=== PATIENT | female | born 1955 | race Caucasian/White ===

== ENCOUNTER 2016-05-17 16:11 | Emergency (ER) | payer BC ==
[~2016-05-17] VITALS: Ht 170.2 cm; Wt 60.0 kg
[2016-05-17 16:21] VITALS: BP 123/64; PULSE 83; RESP 15; TEMP 98.2; O2SAT 98
[2016-05-17] MEDS ORDERED: SODIUM CHLOR 0.9% 1000 ML INJ 1,000 ML IV SCH (18:38)
--- NOTE | 2016-05-17 18:41 | PD ---
HPI Chief Complaint: GI Complaint Time Seen by Provider: 18:33 Travel History International Travel<30 days: No Contact w/Intl Traveler<30days: No Traveled to known affect area: No History of Present Illness HPI This is a 61-year-old female who presents for evaluation of nausea and vomiting. Symptoms started this morning at 4 AM. She reports several episodes of emesis today whenever she attempts to drink any water. She does note that the last time she threw up at 4 PM it was blood-tinged. She denies any abdominal pain, fevers, dysuria, chest pain or shortness of breath, diarrhea or constipation. She believes that she may have food poisoning because her has been feeling nauseous today as well. They both ate turkey sandwich at [employer] last night. She has no other complaints at this time. [facility] Social History Alcohol Use: Yes Tobacco Use: No Allergies-Medications (Allergen,Severity, Reaction): Coded Allergies: Penicillin (Verified Allergy, Unknown, 05/17/16) Reported Meds & Prescriptions Reported Meds & Active Scripts Active Zofran (Ondansetron HCl) 4 Mg Tab 4 Mg PO Q6HR PRN Review of Systems Except as stated in HPI: all other systems reviewed are Neg Physical Exam Narrative GENERAL: Well-developed well-nourished female in no acute distress SKIN: Warm and dry. HEAD: Atraumatic. Normocephalic. EYES: Pupils equal and round. No scleral icterus. No injection or drainage. ENT: No nasal bleeding or discharge. Mucous membranes pink and moist. NECK: Trachea midline. No JVD. CARDIOVASCULAR: Regular rate and rhythm. No murmur appreciated. RESPIRATORY: No accessory muscle use. Clear to auscultation. Breath sounds equal bilaterally. GASTROINTESTINAL: Abdomen soft, non-tender, nondistended. Hepatic and splenic margins not palpable. MUSCULOSKELETAL: No obvious deformities. No clubbing. No cyanosis. No edema. NEUROLOGICAL: Awake and alert. No obvious cranial nerve deficits. Motor grossly within normal limits. Normal speech. PSYCHIATRIC: Appropriate mood and affect; insight and judgment normal. Data Data Last Documented VS Vital Signs Date Time Temp Pulse Resp B/P Pulse Ox O2 Delivery O2 Flow Rate FiO2 05/17/16 16:21 98.2 83 15 123/64 98 Orders Complete Blood Count With Diff (05/17/16 18:38) Comprehensive Metabolic Panel (05/17/16 18:38) Lipase (05/17/16 18:38) Ondansetron Inj (Zofran Inj) (05/17/16 18:45) Sodium Chlor 0.9% 1000 Ml Inj (Ns 1000 M (05/17/16 18:38) Labs Laboratory Tests Test 05/17/16 18:50 White Blood Count 9.4 TH/MM3 Red Blood Count 4.46 MIL/MM3 Hemoglobin 14.9 GM/DL Hematocrit 43.0 % Mean Corpuscular Volume 96.5 FL Mean Corpuscular Hemoglobin 33.4 PG Mean Corpuscular Hemoglobin 34.6 % Concent Red Cell Distribution Width 14.2 % Platelet Count 284 TH/MM3 Mean Platelet Volume 7.2 FL Neutrophils (%) (Auto) 93.9 % Lymphocytes (%) (Auto) 3.2 % Monocytes (%) (Auto) 2.1 % Eosinophils (%) (Auto) 0.6 % Basophils (%) (Auto) 0.2 % Neutrophils # (Auto) 8.8 TH/MM3 Lymphocytes # (Auto) 0.3 TH/MM3 Monocytes # (Auto) 0.2 TH/MM3 Eosinophils # (Auto) 0.1 TH/MM3 Basophils # (Auto) 0.0 TH/MM3 CBC Comment DIFF FINAL Differential Comment Sodium Level 143 MEQ/L Potassium Level 3.9 MEQ/L Chloride Level 108 MEQ/L Carbon Dioxide Level 30.8 MEQ/L Anion Gap 4 MEQ/L Blood Urea Nitrogen 20 MG/DL Creatinine 0.76 MG/DL Estimat Glomerular Filtration 78 ML/MIN Rate Random Glucose 114 MG/DL Calcium Level 8.9 MG/DL Total Bilirubin 0.3 MG/DL Aspartate Amino Transf 26 U/L (AST/SGOT) Alanine Aminotransferase 25 U/L (ALT/SGPT) Alkaline Phosphatase 57 U/L Total Protein 7.0 GM/DL Albumin 3.7 GM/DL Lipase 148 U/L [facility] Medical Decision Making Medical Screen Exam Complete: Yes Emergency Medical Condition: Yes Medical Record Reviewed: Yes Differential Diagnosis Gastroenteritis, dehydration, Tamia-Garcia tear, electrolyte abnormality Narrative Course 61-year-old female with nausea and vomiting today. Her abdomen is soft and nontender. She has not had any diarrhea. Her vital signs are stable. Her has had nausea today as well. Likely her symptoms are secondary to gastroenteritis. We'll check basic lab work and provide her with fluids and Zofran. BUN is 20, lab work is otherwise unremarkable. She does feel improved after the administration of Zofran and IV fluids and she was able to tolerate some water by mouth. I suspect a viral gastroenteritis. Recommended slowly advancing diet as tolerated. She'll be discharged with a prescription for Zofran. Diagnosis Primary Impression: Gastroenteritis Additional Instructions: Zofran as needed for nausea. Slowly advance diet as tolerated. Follow-up with primary care physician as needed and return for any new or worsening symptoms. Med/Other Pt SpecificInfo: Prescription(s) given Scripts Ondansetron (Zofran)4 Mg Tab4 Mg PO Q6HR PRN (NAUSEA OR VOMITING) #15 TAB Ref 0 Prov:BintaSonya DO 05/17/16 Disposition: 01 DISCHARGE HOME Condition: Stable Prabhu Arcos May 17, 2016 18:41
[2016-05-17] MEDS ORDERED: ONDANSETRON HCL 4 MG/2 ML VIAL IVP ONE (18:45)
[2016-05-17 19:33] LABS: AUTOMATED NEUTROPHIL # 8.8 TH/MM3 (1.8-7.7); BASOPHIL % 0.2 % (0.0-2.0); EOSINOPHIL # 0.1 TH/MM3 (0-0.4); EOSINOPHIL % 0.6 % (0.0-4.0); HEMO FLAGS DIFF FINAL; LYMPH % 3.2 % (9.0-44.0); LYMPHOCYTE # 0.3 TH/MM3 (1.0-4.8); MEAN CELL VOLUME 96.5 FL (80.0-100.0); MEAN CORPUSCULAR HEMOGLOBIN 33.4 PG (27.0-34.0); MEAN CORPUSCULAR HGB CONC 34.6 % (32.0-36.0); MONO % 2.1 % (0.0-8.0); NEUT % 93.9 % (16.0-70.0); PLATELET COUNT 284 TH/MM3 (150-450); RED BLOOD COUNT 4.46 MIL/MM3 (4.00-5.30); RED CELL DISTRIBUTION WIDTH 14.2 % (11.6-17.2); WHITE BLOOD COUNT 9.4 TH/MM3 (4.0-11.0)
[2016-05-17] MEDS ORDERED: ZOFR4TAB PO (19:53)
[2016-05-17 19:58] LABS: ANION GAP 4 MEQ/L (5-15); AST (GOT) 26 U/L (15-37); BICARBONATE 30.8 MEQ/L (21.0-32.0); BLOOD UREA NITROGEN 20 MG/DL (7-18); CHLORIDE 108 MEQ/L (98-107); GLOMERULAR FILTRATION RATE 78 ML/MIN (>89); POTASSIUM 3.9 MEQ/L (3.5-5.1); SODIUM (NA) 143 MEQ/L (136-145)
[2016-05-17 20:01] LABS: ALKALINE PHOSPHATASE 57 U/L (45-117); ALT (GPT) 25 U/L (10-53); TOTAL BILIRUBIN ADULT 0.3 MG/DL (0.2-1.0)
--- NOTE | 2016-05-17 20:24 | PD ---
Physical Exam Narrative I, Dr. Judd, have reviewed the advance practice practitioner's documentation and am in agreement, met with the patient face to face, made the diagnosis, and the medical decision making was done by me. *My assessment and Findings: Gastroenteritis 61yo F with nausea and vomiting today. Labs reviewed, no leukocytosis. Lipase normal. BUN mildly elevated at 20. Pt given zofran and NS IVF. Pt reevaluated at bedside and is able to tolerate PO. Abdomen soft, NT/ND. Return precautions given. Data Data Last Documented VS Vital Signs Date Time Temp Pulse Resp B/P Pulse Ox O2 Delivery O2 Flow Rate FiO2 05/17/16 16:21 98.2 83 15 123/64 98 Orders Complete Blood Count With Diff (05/17/16 18:38) Comprehensive Metabolic Panel (05/17/16 18:38) Lipase (05/17/16 18:38) Ondansetron Inj (Zofran Inj) (05/17/16 18:45) Sodium Chlor 0.9% 1000 Ml Inj (Ns 1000 M (05/17/16 18:38) Labs Laboratory Tests Test 05/17/16 18:50 White Blood Count 9.4 TH/MM3 Red Blood Count 4.46 MIL/MM3 Hemoglobin 14.9 GM/DL Hematocrit 43.0 % Mean Corpuscular Volume 96.5 FL Mean Corpuscular Hemoglobin 33.4 PG Mean Corpuscular Hemoglobin 34.6 % Concent Red Cell Distribution Width 14.2 % Platelet Count 284 TH/MM3 Mean Platelet Volume 7.2 FL Neutrophils (%) (Auto) 93.9 % Lymphocytes (%) (Auto) 3.2 % Monocytes (%) (Auto) 2.1 % Eosinophils (%) (Auto) 0.6 % Basophils (%) (Auto) 0.2 % Neutrophils # (Auto) 8.8 TH/MM3 Lymphocytes # (Auto) 0.3 TH/MM3 Monocytes # (Auto) 0.2 TH/MM3 Eosinophils # (Auto) 0.1 TH/MM3 Basophils # (Auto) 0.0 TH/MM3 CBC Comment DIFF FINAL Differential Comment Sodium Level 143 MEQ/L Potassium Level 3.9 MEQ/L Chloride Level 108 MEQ/L Carbon Dioxide Level 30.8 MEQ/L Anion Gap 4 MEQ/L Blood Urea Nitrogen 20 MG/DL Creatinine 0.76 MG/DL Estimat Glomerular Filtration 78 ML/MIN Rate Random Glucose 114 MG/DL Calcium Level 8.9 MG/DL Total Bilirubin 0.3 MG/DL Aspartate Amino Transf 26 U/L (AST/SGOT) Alanine Aminotransferase 25 U/L (ALT/SGPT) Alkaline Phosphatase 57 U/L Total Protein 7.0 GM/DL Albumin 3.7 GM/DL Lipase 148 U/L [facility] Supervised Visit with [place]: Yes Diagnosis Primary Impression: Gastroenteritis Patient Instructions: General Instructions Departure Forms: Tests/Procedures Additional Instruction: Zofran as needed for nausea. Slowly advance diet as tolerated. Follow-up with primary care physician as needed and return for any new or worsening symptoms. Med/Other Pt SpecificInfo: Prescription(s) given Scripts Ondansetron (Zofran)4 Mg Tab4 Mg PO Q6HR PRN (NAUSEA OR VOMITING) #15 TAB Ref 0 Prov:Sonya Judd DO 05/17/16 Disposition: 01 DISCHARGE HOME Condition: Stable Sonya Judd DO May 17, 2016 20:24
== END 2016-05-17 21:09 | disposition home or self-care (01) ==
LOC: NEPB 16:11 → NEPA 21:09
DX: K52.9 Noninfective gastroenteritis and colitis, unspecified (principal)
CPT/HCPCS: 80053; 83690; 85025; 96361; 96374; 99283; J2405; J7030